=== PATIENT | male | born 1940 | race Caucasian/White ===

== ENCOUNTER → 2018-01-13 | Outpatient (REF) | payer MEDICARE ==
[2018-01-13 12:09] LABS: LDL CHOLESTEROL 45 mg/dl
== END ==
LOC: ZZLCC 11:53
PROVIDERS: ATTEND Family Medicine
DX: E78.5 Hyperlipidemia, unspecified (principal); I10 Essential (primary) hypertension; I25.9 Chronic ischemic heart disease, unspecified; E03.9 Hypothyroidism, unspecified; Z79.899 Other long term (current) drug therapy
CPT/HCPCS: 82040; 82247; 82310; 82374; 82435; 82465; 82565; 82947; 83718; 83880; 84075; 84132; 84155; 84295; 84443; 84450; 84460; 84478; 84520; 85027

== ENCOUNTER → 2018-02-06 | Outpatient (REF) | payer MEDICARE | LOC: ZZSENDIN 15:22 | PROVIDERS: ATTEND Family Medicine | DX: E78.5 Hyperlipidemia, unspecified (principal); I10 Essential (primary) hypertension; I25.9 Chronic ischemic heart disease, unspecified; M54.5 Low back pain; G30.9 Alzheimer's disease, unspecified; M26.20 Unspecified anomaly of dental arch relationship; R26.2 Difficulty in walking, not elsewhere classified; F02.80 Dementia in other diseases classified elsewhere, unspecified severity, without behavioral disturbance, psychotic disturbance, mood disturbance, and anxiety; Z66 Do not resuscitate | CPT/HCPCS: 82310; 82374; 82435; 82565; 82947; 84132; 84295; 84520; 85027 ==

== ENCOUNTER 2018-09-06 23:11 | Emergency (ER) | payer MEDICARE ==
--- NOTE | 2018-09-06 23:50 | ER Report ---
History and Physical Time Seen By MD: 23:50 Hx. of Stated Complaint: UNWITNESSED FALL AT [facility]. SCRUFF ON RT KNEE, ELBOW PAIN. PT HAS DEMENTIA, UNABLE TO ANSWER QUESTIONS. WINCES WHEN RT ELBOW IT TOUCHED HPI/ROS CHIEF COMPLAINT: Unwitnessed fall HISTORY OF PRESENT ILLNESS: This is an 78-year-old male. He had an unwitnessed fall at [facility]. He has a scrap on his right knee and some elbow pain. Nursing indicated that he has pain when his right elbow is touched. He does have dementia and unable to answer questions. He was found curled up wedged behind the door. REVIEW OF SYSTEMS: Unable to obtain Allergies: Coded Allergies: No Known Drug Allergies (Unverified , 09/07/18) Home Meds Reported Medications Metoprolol Tartrate (METOPROLOL TARTRATE) 25 Mg Tablet, 2 TAB PO BID, TAB 09/07/18 Simvastatin (SIMVASTATIN) 40 Mg Tablet, 40 MG PO HS, TAB 09/07/18 Lisinopril (LISINOPRIL) 20 Mg Tablet, 20 MG PO QDAY, TAB 09/07/18 Reviewed Nurses Notes: Yes Constitutional Vital Sign - Last 24 Hours 09/06/18 09/06/18 09/06/18 09/06/18 23:17 23:17 23:21 23:26 Temp 98.9 Pulse 115 114 111 Resp 16 B/P (MAP) 113/79 113/79 (90) Pulse Ox 95 96 96 O2 Delivery Nasal Cannula 09/06/18 09/06/18 09/06/18 09/06/18 23:30 23:31 23:36 23:41 Pulse 109 110 108 B/P (MAP) 114/78 (90) Pulse Ox 96 96 97 09/06/18 09/06/18 09/06/18 09/07/18 23:46 23:51 23:56 00:00 Pulse 105 102 103 B/P (MAP) 106/71 (83) Pulse Ox 97 95 97 09/07/18 09/07/18 09/07/18 09/07/18 00:01 00:06 00:11 00:16 Pulse 104 100 108 99 Pulse Ox 97 97 97 97 09/07/18 09/07/18 09/07/18 09/07/18 00:21 00:26 00:30 00:31 Pulse 100 97 99 B/P (MAP) 123/75 (91) Pulse Ox 96 96 97 09/07/18 09/07/18 09/07/18 09/07/18 00:36 00:41 00:46 00:51 Pulse 98 ??? 98 107 Pulse Ox 96 96 95 94 09/07/18 09/07/18 09/07/18 09/07/18 00:56 01:01 01:16 01:30 Pulse ? B/P (MAP) 112/73 (86) Pulse Ox 93 09/07/18 01:46 Pulse ??? Physical Exam General Appearance: The patient is alert. No acute distress. Eyes: Pupils are equal, round. Reactive to light. No pallor, injection or icter us. Extraocular movements are intact. ENT: Mucous membranes are moist. Normal oral mucosa. Posterior oropharynx is normal. Neck: Supple and non tender. No lymphadenopathy. Respiratory: Breathing easily and unlabored. Lungs are clear to auscultation. Cardiovascular: Regular rate and rhythm. No murmurs, gallops or rubs. Normal capillary refill. Gastrointestinal: Abdomen is soft and non tender. Nondistended. Normal active bowel sounds. Neurological: Alert and oriented x3. Moving all extremities but unable to purchase pain. Neuro exam. Skin: Warm and dry. Slight abrasion right knee. Musculoskeletal: He has no pain with palpating throughout the right and left legs. He has minimal discomfort on the right elbow and right shoulder with palpation. No pain with palpating the cervical thoracic or lumbar spine or elsewhere in the back. DIFFERENTIAL DIAGNOSIS: After history and physical exam, differential diagnosis was considered for history of fall, unwitnessed, with concern for right elbow pain, perhaps right shoulder pain we will go ahead and get a cervical spine and head CT as well. Medical Decision Making EKG/Imaging Imaging HEAD CT: Indication: Injury. Technique: Contiguous axial sections were obtained from the base to the vertex without contrast enhancement. One of the following dose optimization techniques was utilized in the performance of this exam: Automated exposure control; adjustment of the mA and/or kV according to the patient's size; or use of an iterative reconstruction technique. Specific details can be referenced in the facility's radiology CT exam operational policy. Comparison: None. Findings: There is no evidence of intra-axial or extra-axial hemorrhage. There is diffuse mild/moderate atrophy. No focal areas of decreased or increased attenuation are identified. There is no evidence of mass, edema, or shift of the midline structures. The size, shape, and configuration of the ventricular system are normal. The skeletal structures are intact and unremarkable. There is no evidence of fracture or other acute deformity. The visualized paranasal sinuses and mastoid air cells are clear. Impression: Diffuse atrophy. No evidence of fracture, hemorrhage, or acute intracranial abnormality. Report Dictated By: Dale Guillen MD at 09/07/2018 1:[address] of the cervical spine without contrast: Indication: Injury. Technique: Helical CT was performed through the cervical spine without contrast. Axial, coronal, and sagittal reconstructions are reviewed. One of the following dose optimization techniques was utilized in the performance of this exam: Automated exposure control; adjustment of the mA and/or kV according to the patient's size; or use of an iterative reconstruction technique. Specific details can be referenced in the facility's radiology CT exam operational policy. Comparison: None. Findings: There is no evidence of fracture, compression, subluxation, or other acute deformity. There is moderate/marked degenerative disc disease and osteoarthritis from C4 through C7. There is minimal degenerative subluxation at C3-4-C5. There is a small cystic lesion in the odontoid process. No destructive skeletal lesions are identified. No paraspinal soft tissue abnormalities are identified. IMPRESSION: Moderate/marked degenerative disc disease and osteoarthritis. No evidence of fracture or acute deformity. Report Dictated By: Dale Guillen MD at 09/07/2018 1:31 AM INDICATION: Fall, shoulder, neck and elbow pain, dementia. EXAM DATE: 09/07/2018 12:12 AM COMPARISON: None. FINDINGS: 3 views of the right shoulder. Mineralization is lobe. No acute alignment abnormality or fracture. Mild arthrosis. Soft tissues are unremarkable. IMPRESSION: No acute osseous abnormality of the right shoulder. Report Dictated By: Jose Redding MD at 09/07/2018 1:21 AM RIGHT ELBOW: Indication: Injury. Technique: 3 views were obtained. Comparison: None. Findings: There are no signs of fracture, subluxation, or other acute deformity. There is evidence of osteoarthritis with mild marginal osteophyte formation. There is uniform mineralization of the skeletal structures. There is no evidence of joint effusion or periarticular soft tissue abnormality. IMPRESSION: No fracture or acute deformity. Report Dictated By: Dale Guillen MD at 09/07/2018 1:24 AM ED Course/Re-evaluation ED Course Imaging negative. Reevaluation he really has no pain at this time. Decision to Disposition Date: Sep 07, 2018 Decision to Disposition Time: 01:51 Depart Departure Latest Vital Signs Vital Signs Date Time Temp Pulse Resp B/P (MAP) Pulse Ox O2 Delivery O2 Flow Rate FiO2 09/07/18 01:46 ??? 09/07/18 01:30 112/73 (86) 09/07/18 00:56 93 09/06/18 23:17 98.9 16 Nasal Cannula Impression: Primary Impression: Fall Additional Impressions: Dementia Contusion Condition: Improved Disposition: HOME OR SELF-CARE Patient Instructions: Contusion in Adults (ED) Additional Instructions: No abnormalities noted on imaging tonight. On reevaluation after imaging, no complaints of pain. Can use Tylenol as needed for pain complaints. Problem Qualifiers Primary Impression: Fall Encounter type: initial encounter Qualified Codes: W19.XXXA - Unspecified fall, initial encounter Additional Impressions: Dementia Dementia type: unspecified type Dementia behavioral disturbance: without behavioral disturbance Qualified Codes: F03.90 - Unspecified dementia without behavioral disturbance Contusion Encounter type: initial encounter Contusion area: upper arm Laterality: right Qualified Codes: S40.021A - Contusion of right upper arm, initial encounter KUNAL PADILLA MD Sep 06, 2018 23:50
--- NOTE | 2018-09-07 01:26 | RADIOLOGY IMAGING REPORT ---
FACILITY: [facility] PATIENT NAME: Lam Metzger : 1940 MR: [id number] V: [id number] EXAM DATE: ORDERING PHYSICIAN: KUNAL PADILLA TECHNOLOGIST: Location: [facility] - [place] Patient: Lam Metzger : 1940 Visit/Account:[id number] Date of Sevice: 09/07/2018 INDICATION: Fall, shoulder, neck and elbow pain, dementia. EXAM DATE: 09/07/2018 12:12 AM COMPARISON: None. FINDINGS: 3 views of the right shoulder. Mineralization is lobe. No acute alignment abnormality or fracture. Mild arthrosis. Soft tissues are unremarkable. IMPRESSION: No acute osseous abnormality of the right shoulder. Report Dictated By: Jose Redding MD at 09/07/2018 1:21 AM Report E-Signed By: Jose Redding MD at 09/07/2018 1:22 AM WSN:[id number]
--- NOTE | 2018-09-07 01:28 | RADIOLOGY IMAGING REPORT ---
FACILITY: [facility] PATIENT NAME: Lam Metzger : 1940 MR: [id number] V: [id number] EXAM DATE: ORDERING PHYSICIAN: KUNAL PADILLA TECHNOLOGIST: Location: [facility] - [place] Patient: Lam Metzger : 1940 Visit/Account:[id number] Date of Sevice: 09/07/[address]: Indication: Injury. Technique: Contiguous axial sections were obtained from the base to the vertex without contrast enhan cement. One of the following dose optimization techniques was utilized in the performance of this exam: Autom ated exposure control; adjustment of the mA and/or kV according to the patient's size; or use of an i terative reconstruction technique. Specific details can be referenced in the facility's radiology CT exam operational policy. Comparison: None. Findings: There is no evidence of intra-axial or extra-axial hemorrhage. There is diffuse mild/modera te atrophy. No focal areas of decreased or increased attenuation are identified. There is no evidence of mass, edema, or shift of the midline structures. The size, shape, and configuration of the ventri cular system are normal. The skeletal structures are intact and unremarkable. There is no evidence of fracture or other acute deformity. The visualized paranasal sinuses and mastoid air cells are clear. Impression: Diffuse atrophy. No evidence of fracture, hemorrhage, or acute intracranial abnormality. Report Dictated By: Dale Guillen MD at 09/07/2018 1:22 AM Report E-Signed By: Dale Guillen MD at 09/07/2018 1:24 AM WSN:[id number]
[2018-09-07 01:30] VITALS: BP 112/73
--- NOTE | 2018-09-07 01:30 | RADIOLOGY IMAGING REPORT ---
[place] [facility] [place]IENT NAME: Lam Metzger : 1940 MR: [id number] V: [id number] EXAM DATE: ORDERING PHYSICIAN: KUNAL PADILLA TECHNOLOGIST: Location: [facility] - [place] Patient: Lam Metzger : 1940 Visit/Account:[id number] Date of Sevice: 09/07/2018 RIGHT ELBOW: Indication: Injury. Technique: 3 views were obtained. Comparison: None. Findings: There are no signs of fracture, subluxation, or other acute deformity. There is evidence of osteoarthritis with mild marginal osteophyte formation. There is uniform mineralization of the skele javier structures. There is no evidence of joint effusion or periarticular soft tissue abnormality. IMPRESSION: No fracture or acute deformity. Report Dictated By: Dale Guillen MD at 09/07/2018 1:24 AM Report E-Signed By: Dale Guillen MD at 09/07/2018 1:26 AM WSN:[id number]
[2018-09-07] MEDS ORDERED: LISI20TA29 PO (01:39)
[2018-09-07] MEDS ORDERED: SIMV-54 PO (01:39)
[2018-09-07] MEDS ORDERED: METO25TA93 PO (01:39)
--- NOTE | 2018-09-07 01:40 | RADIOLOGY IMAGING REPORT ---
FACILITY: [facility] PATIENT NAME: Lam Metzger : 1940 MR: [id number] V: [id number] EXAM DATE: ORDERING PHYSICIAN: KUNAL PADILLA [place]CHN[place]: [place] [facility] [place]: [place] : 1940 Visit/Account:[id number] Date of Sevice: 09/07/2018 CT of the cervical spine without contrast: Indication: Injury. Technique: Helical CT was performed through the cervical spine without contrast. Axial, coronal, and sagittal reconstructions are reviewed. One of the following dose optimization techniques was utilized in the performance of this exam: Autom ated exposure control; adjustment of the mA and/or kV according to the patient's size; or use of an i terative reconstruction technique. Specific details can be referenced in the facility's radiology CT exam operational policy. Comparison: None. Findings: There is no evidence of fracture, compression, subluxation, or other acute deformity. There is moderate/marked degenerative disc disease and osteoarthritis from C4 through C7. There is minimal degenerative subluxation at C3-4-C5. There is a small cystic lesion in the odontoid process. No dest ructive skeletal lesions are identified. No paraspinal soft tissue abnormalities are identified. IMPRESSION: Moderate/marked degenerative disc disease and osteoarthritis. No evidence of fracture or acute deformity. Report Dictated By: Dale Guillen MD at 09/07/2018 1:31 AM Report E-Signed By: Dale Guillen MD at 09/07/2018 1:37 AM WSN:[id number]
== END 2018-09-07 02:13 | disposition home or self-care (01) ==
LOC: ER 23:51
DX: S40.021A Contusion of right upper arm, initial encounter (principal); F03.90 Unspecified dementia, unspecified severity, without behavioral disturbance, psychotic disturbance, mood disturbance, and anxiety
CPT/HCPCS: 70450; 72125; 99284

== ENCOUNTER → 2018-09-06 | Outpatient (CLI) | payer MEDICARE ==
[~2018-09-06] MED LIST: LISI20TA29 PO; METO25TA93 PO; SIMV-54 PO
== END ==
LOC: AMB 22:48
PROVIDERS: ATTEND Nurse Practitioner
DX: S80.811A Abrasion, right lower leg, initial encounter (principal); M25.521 Pain in right elbow
CPT/HCPCS: A0425; A0427

== ENCOUNTER → 2018-09-07 | Outpatient (CLI) | payer MEDICARE | LOC: AMB 02:12 | PROVIDERS: ATTEND Nurse Practitioner | DX: Z76.89 Persons encountering health services in other specified circumstances (principal) | CPT/HCPCS: A0425; A0428 ==

== ENCOUNTER → 2018-09-13 | Outpatient (CLI) | payer MEDICARE ==
--- NOTE | 2018-09-13 15:58 | RADIOLOGY IMAGING REPORT ---
FACILITY: [facility] PATIENT NAME: Lam Metzger : 1940 MR: [id number] V: [id number] EXAM DATE: ORDERING PHYSICIAN: MEGAN ALEGRIA TECHNOLOGIST: Location: [facility] - [place] Patient: Lam Metzger : 1940 Visit/Account:[id number] Date of Sevice: 09/13/2018 Exam type: HIP RIGHT History: Right hip pain Comparison: None. Findings: Two views of the right hip demonstrate no evidence of acute fracture or dislocation or significant ar thritic change. Surgical clips are noted within the pelvis. IMPRESSION: 1. No evidence of acute fracture or dislocation involving the right hip Report Dictated By: Desiree Duncan MD at 09/13/2018 3:52 PM Report E-Signed By: Desiree Duncan MD at 09/13/2018 3:53 PM WSN:[email or web address]
--- NOTE | 2018-09-13 15:59 | RADIOLOGY IMAGING REPORT ---
FACILITY: [facility] - [place] PATIENT NAME: Lam Metzger : 1940 MR: [id number] V: [id number] EXAM DATE: ORDERING PHYSICIAN: MEGAN ALEGRIA TECHNOLOGIST: Location: [facility] - [place], [place] Patient: Lam Metzger : 1940 Visit/Account:[id number] Date of Sevice: 09/13/2018 Exam type: FOOT 3 VIEW RIGHT History: Right foot pain, limping Comparison: None. Findings: There is diffuse osteopenia of the right foot mild to moderate joint changes throughout the interphal angeal joints and the right fourth and fifth MTP joints. There is no evidence of acute fracture or d islocation. Mild vascular calcifications are seen between the first and second metatarsals IMPRESSION: 1. Diffuse osteopenia the right foot with mild to moderate degenerative changes although no evidence of acute fracture or dislocation Report Dictated By: Desiree Duncan MD at 09/13/2018 3:53 PM Report E-Signed By: Desiree Duncan MD at 09/13/2018 3:55 PM WSN:[email or web address]
== END ==
LOC: RAD 15:09
PROVIDERS: ATTEND Family Medicine
DX: M85.871 Other specified disorders of bone density and structure, right ankle and foot (principal)